=== PATIENT | female | born 1980 | race Caucasian/White ===

== ENCOUNTER 2017-03-28 01:27 | Emergency (ER) | payer BC ==
[2017-03-28 01:35] VITALS: BP 143/92
[2017-03-28] MEDS ORDERED: Ondansetron 4 MG/2 ML SDV IVPUSH ONE (01:45)
[2017-03-28] MEDS ORDERED: Sodium Chloride 0.9% 1,000 ML IV SCH (01:45)
[2017-03-28] MEDS ORDERED: Sodium Chloride 0.9% 10 ML Syringe FLUSH PRN (01:45)
[2017-03-28] MEDS ORDERED: HYDROmorphone 1 MG/ML Syringe IVPUSH ONE (01:47)
--- NOTE | 2017-03-28 01:51 | EDM.PDOC ---
ED HPI GENERAL MEDICAL PROBLEM - General Chief Complaint: Abdominal Pain Stated Complaint: VOMITING/ABDOMINAL PAIN Time Seen by Provider: 03/28/17 01:42 Source of Information: Reports: Patient History Limitations: Reports: No Limitations - History of Present Illness INITIAL COMMENTS - FREE TEXT/NARRATIVE: The patient presents with left flank pain, abdominal pain, nausea and vomiting. This all started about 10pm last night. She has chills but no fever. She has no dysuria or hematuria. She had 1 episode of diarrhea before she came. She has no history of kidney stones. She did not eat any bad food and she has not been around anyone who is sick. She still has her appendix and gallbladder. Onset: Sudden Duration: Hour(s): (3) Location: Reports: Abdomen, Back Quality: Reports: Sharp Severity: Severe Improves with: Reports: None Worsens with: Reports: None Associated Symptoms: Reports: Fever/Chills, Nausea/Vomiting. Denies: Chest Pain , Cough, Shortness of Breath Middle Abdominal Pain Score (Numeric/FACES): 8 - Related Data Allergies Allergy/AdvReac Type Severity Reaction Status Date / Time Penicillins Allergy Hives Verified 03/28/17 01:32 Home Meds: Home Meds Nitrofurantoin [place]/Macrocryst [Macrobid] 100 mg PO BID #10 cap 03/28/17 [Rx] Ondansetron [Zofran ODT] 4 mg PO Q6H PRN #20 tab.dis 03/28/17 [Rx] Past Medical History - Past Surgical History HEENT Surgical History: Reports: Tonsillectomy Female Surgical History: Reports: Section, Tubal Ligation Social & Family History - Tobacco Use Smoking Status *Q: Never Smoker - Recreational Drug Use Recreational Drug Use: No ED ROS GENERAL - Review of Systems Review Of Systems: See Below Constitutional: Reports: Chills. Denies: Fever HEENT: Reports: No Symptoms Respiratory: Reports: No Symptoms Cardiovascular: Reports: No Symptoms Endocrine: Reports: No Symptoms GI/Abdominal: Reports: Abdominal Pain, Diarrhea, Nausea, Vomiting : Reports: No Symptoms Musculoskeletal: Reports: Back Pain (Left flank) ED EXAM, GI/ABD - Physical Exam Exam: See Below Exam Limited By: No Limitations General Appearance: Alert, No Apparent Distress Ears: Normal External Exam Nose: Normal Inspection Head: Atraumatic, Normocephalic Neck: Normal Inspection Respiratory/Chest: No Respiratory Distress, Lungs Clear, Normal Breath Sounds Cardiovascular: Regular Rate, Rhythm, No Edema, No Murmur GI/Abdominal Exam: Soft, No Organomegaly, No Mass, Tender (Moderate pain to the left upper abdomen) Back Exam: CVA Tenderness (L) Course - Vital Signs Last Recorded V/S: Last Vital Signs Temp 98.1 F 03/28/17 01:33 Pulse 94 03/28/17 01:33 Resp 16 03/28/17 01:33 BP 143/92 H 03/28/17 01:33 Pulse Ox 98 03/28/17 01:33 - Orders/Labs/Meds Orders: Active Orders 24 hr Category Date Time Status Peripheral IV Care [RC] . DIRECTED Care 03/28/17 01:46 Active Abdomen Pelvis wo Cont [CT] Stat Exams 03/28/17 01:45 Taken Levofloxacin [Levaquin] Med 03/28/17 03:19 Once 500 mg PO ONETIME ONE Sodium Chloride 0.9% [Normal Saline] 1,000 ml Med 03/28/17 01:45 Active IV ASDIRECTED Sodium Chloride 0.9% [Saline Flush] Med 03/28/17 01:45 Active 10 ml FLUSH ASDIRECTED PRN ED Antiemetic Medication Reflex [OM.PC] Stat Oth 03/28/17 01:46 Ordered Peripheral IV Insertion Adult [OM.PC] Stat Oth 03/28/17 01:45 Ordered Medication Orders Sodium Chloride (Normal Saline) 1,000 mls @ 125 mls/hr IV ASDIRECTED LISA Last Admin: 03/28/17 01:54 Dose: 125 mls/hr Sodium Chloride (Saline Flush) 10 ml FLUSH ASDIRECTED PRN PRN Reason: Keep Vein Open Last Admin: 03/28/17 01:53 Dose: 10 ml Labs: Laboratory Tests 03/28/17 03/28/17 03/28/17 Range/Units 01:50 01:50 01:50 WBC 14.85 H (3.98-10.04) K/mm3 RBC 4.93 (3.98-5.22) M/mm3 Hgb 13.7 (11.2-15.7) gm/L Hct 40.5 (34.1-44.9) % MCV 82.2 (79.4-94.8) fl MCH 27.8 (25.6-32.2) pg MCHC 33.8 (32.2-35.5) g/dl RDW Std Deviation 39.9 (36.4-46.3) fL Plt Count 338 (182-369) K/mm3 MPV 9.8 (9.4-12.3) fl Neut % (Auto) 72.8 H (34.0-71.1) % Lymph % (Auto) 18.5 L (19.3-51.7) % [place] % (Auto) 8.1 (4.7-12.5) % Eos % (Auto) 0.1 L (0.7-5.8) Baso % (Auto) 0.3 (0.1-1.2) % Neut # (Auto) 10.81 H (1.56-6.13) K/mm3 Lymph # (Auto) 2.75 (1.18-3.74) K/mm3 [place] # (Auto) 1.21 H (0.24-0.36) K/mm3 Eos # (Auto) 0.01 L (0.04-0.36) K/mm3 Baso # (Auto) 0.04 (0.01-0.08) K/mm3 Sodium 141 (136-145) mEq/L Potassium 3.9 (3.5-5.1) mEq/L Chloride 105 (98-107) mEq/L Carbon Dioxide 28 (21-32) mEq/L Anion Gap 11.9 (5-15) BUN 15 (7-18) mg/dL Creatinine 0.9 (0.55-1.02) mg/dL Est Cr Clr Drug Dosing 75.34 mL/min Estimated GFR (MDRD) > 60 (>60) mL/min BUN/Creatinine Ratio 16.7 (14-18) Glucose 131 H (74-106) mg/dL Calcium 9.1 (8.5-10.1) mg/dL Total Bilirubin 0.3 (0.2-1.0) mg/dL AST 18 (15-37) U/L ALT 24 (14-59) U/L Alkaline Phosphatase 84 (46-116) U/L Total Protein 7.6 (6.4-8.2) g/dl Albumin 3.5 (3.4-5.0) g/dl Globulin 4.1 gm/dL Albumin/Globulin Ratio 0.9 L (1-2) Lipase 117 (73-393) U/L HCG, Qual Negative (NEGATIVE) Urine Color (Yellow) Urine Appearance (Clear) Urine pH (5.0-8.0) Ur Specific Kam[place] (1.005-1.030) Urine Protein (Negative) Urine Glucose (UA) (Negative) Urine Ketones (Negative) Urine Occult Blood (Negative) Urine Nitrite (Negative) Urine Bilirubin (Negative) Urine Urobilinogen (0.2-1.0) Ur Leukocyte Esterase (Negative) Urine RBC (0-5) /hpf Urine WBC (0-5) /hpf Ur Epithelial Cells (0-5) /hpf Urine Bacteria (FEW) /hpf Urine Mucus (FEW) /hpf 03/28/17 Range/Units 02:57 WBC (3.98-10.04) K/mm3 RBC (3.98-5.22) M/mm3 Hgb (11.2-15.7) gm/L Hct (34.1-44.9) % MCV (79.4-94.8) fl MCH (25.6-32.2) pg MCHC (32.2-35.5) g/dl RDW Std Deviation (36.4-46.3) fL Plt Count (182-369) K/mm3 MPV (9.4-12.3) fl Neut % (Auto) (34.0-71.1) % Lymph % (Auto) (19.3-51.7) % [place] % (Auto) (4.7-12.5) % Eos % (Auto) (0.7-5.8) Baso % (Auto) (0.1-1.2) % Neut # (Auto) (1.56-6.13) K/mm3 Lymph # (Auto) (1.18-3.74) K/mm3 [place] # (Auto) (0.24-0.36) K/mm3 Eos # (Auto) (0.04-0.36) K/mm3 Baso # (Auto) (0.01-0.08) K/mm3 Sodium (136-145) mEq/L Potassium (3.5-5.1) mEq/L Chloride (98-107) mEq/L Carbon Dioxide (21-32) mEq/L Anion Gap (5-15) BUN (7-18) mg/dL Creatinine (0.55-1.02) mg/dL Est Cr Clr Drug Dosing mL/min Estimated GFR (MDRD) (>60) mL/min BUN/Creatinine Ratio (14-18) Glucose (74-106) mg/dL Calcium (8.5-10.1) mg/dL Total Bilirubin (0.2-1.0) mg/dL AST (15-37) U/L ALT (14-59) U/L Alkaline Phosphatase (46-116) U/L Total Protein (6.4-8.2) g/dl Albumin (3.4-5.0) g/dl Globulin gm/dL Albumin/Globulin Ratio (1-2) Lipase (73-393) U/L HCG, Qual (NEGATIVE) Urine Color Red H (Yellow) Urine Appearance Cloudy H (Clear) Urine pH 5.5 (5.0-8.0) Ur Specific Kam[place] > or = 1.030 (1.005-1.030) Urine Protein 2+ H (Negative) Urine Glucose (UA) Negative (Negative) Urine Ketones Negative (Negative) Urine Occult Blood 3+ H (Negative) Urine Nitrite Positive H (Negative) Urine Bilirubin 1+ H (Negative) Urine Urobilinogen 1.0 (0.2-1.0) Ur Leukocyte Esterase Negative (Negative) Urine RBC >100 H (0-5) /hpf Urine WBC 5-10 H (0-5) /hpf Ur Epithelial Cells 0-5 (0-5) /hpf Urine Bacteria Few (FEW) /hpf Urine Mucus Not seen (FEW) /hpf Meds: Medications Generic Name Dose Route Start Last Admin Trade Name Freq PRN Reason Stop Dose Admin Sodium Chloride 1,000 mls @ 125 mls/hr 03/28/17 01:45 03/28/17 01:54 Normal Saline IV 125 mls/hr ASDIRECTED LISA Administration Sodium Chloride 10 ml 03/28/17 01:45 03/28/17 01:53 Saline Flush FLUSH 10 ml ASDIRECTED PRN Administration Keep Vein Open Discontinued Medications Generic Name Dose Route Start Last Admin Trade Name Freq PRN Reason Stop Dose Admin Hydromorphone HCl 1 mg 03/28/17 01:47 03/28/17 01:53 Dilaudid IVPUSH 03/28/17 01:48 1 mg ONETIME ONE Administration Ketorolac Tromethamine 30 mg 03/28/17 02:59 03/28/17 03:05 Toradol IVPUSH 03/28/17 03:00 30 mg ONETIME ONE Administration Ondansetron HCl 4 mg 03/28/17 01:45 03/28/17 01:53 Zofran IVPUSH 03/28/17 01:46 4 mg ONETIME ONE Administration - Re-Assessments/Exams Free Text/Narrative Re-Assessment/Exam: 03/28/17 01:51 I ordered an IV NS at 125mL/hr, zofran 4mg IV, dilaudid 1mg IV labs, UA and a CT of her abdomen and pelvis. 03/28/17 03:20 Her WBC was elevated at 14.85. Her CMP was negative. Her UA shows a UTI. Her CT shows nothing acute. She did have a stone in each kidney. I will give her a dose of levaquin here and a prescription for macrobid for 5 days and zofran. Departure - Departure Time of Disposition: 15:25 Disposition: Home, Self-Care 01 Condition: Good Clinical Impression: UTI (urinary tract infection) Qualifiers: Urinary tract infection type: acute cystitis Hematuria presence: with hematuria Qualified Code(s): N30.01 - Acute cystitis with hematuria Abdominal pain Qualifiers: Abdominal location: generalized Qualified Code(s): R10.84 - Generalized abdominal pain Vomiting Qualifiers: Vomiting type: unspecified Vomiting Intractability: non-intractable Nausea presence: with nausea Qualified Code(s): R11.2 - Nausea with vomiting, unspecified - Discharge Information Prescriptions: Nitrofurantoin [place]/Macrocryst [Macrobid] 100 mg PO BID #10 cap Ondansetron [Zofran ODT] 4 mg PO Q6H PRN #20 tab.dis PRN Reason: Nausea/Vomiting Referrals: Radha Rodgers SHOE REPAIRMAN [Primary Care Provider] - Forms: ED Department Discharge Additional Instructions: Drink plenty of fluid. Take the macrobid 2 times per day for 5 days. Take the zofran as needed for nausea and vomiting. Follow up with your doctor this week if you do not feel better. Please return if you are worse. - My Orders Last 24 Hours: My Active Orders 03/28/17 01:45 Abdomen Pelvis wo Cont [CT] Stat Sodium Chloride 0.9% [Normal Saline] 1,000 ml IV ASDIRECTED Sodium Chloride 0.9% [Saline Flush] 10 ml FLUSH ASDIRECTED PRN Peripheral IV Insertion Adult [OM.PC] Stat 03/28/17 01:46 Peripheral IV Care [RC] . DIRECTED ED Antiemetic Medication Reflex [OM.PC] Stat 03/28/17 03:19 Levofloxacin [Levaquin] 500 mg PO ONETIME ONE - Assessment/Plan Last 24 Hours: My Active Orders 03/28/17 01:45 Abdomen Pelvis wo Cont [CT] Stat Sodium Chloride 0.9% [Normal Saline] 1,000 ml IV ASDIRECTED Sodium Chloride 0.9% [Saline Flush] 10 ml FLUSH ASDIRECTED PRN Peripheral IV Insertion Adult [OM.PC] Stat 03/28/17 01:46 Peripheral IV Care [RC] . DIRECTED ED Antiemetic Medication Reflex [OM.PC] Stat 03/28/17 03:19 Levofloxacin [Levaquin] 500 mg PO ONETIME ONE
[2017-03-28] MEDS ORDERED: Ketorolac 30 MG/ML SDV IVPUSH ONE (02:59)
[2017-03-28] MEDS ORDERED: Levofloxacin 500 MG Tab PO ONE (03:19)
--- NOTE | 2017-03-28 07:40 | CT ---
CT abdomen and pelvis Technique: Multiple axial sections were obtained from above the dome of the diaphragm inferiorly through the pubic symphysis. Intravenous and oral contrast was not utilized. Study has been performed as a ureteral stone protocol. Comparison: No previous study. Findings: Very small nonobstructing renal calculi are noted within both kidneys. No ureteral dilatation or ureteral stone is seen. No bladder calculi are identified. Visualized lung bases show nothing acute. Liver shows mild fatty infiltration. No focal abnormality seen within the liver. Spleen appears within normal limits. Adrenal glands show no nodule. Pancreas is within normal limits. Gallbladder shows no calcified gallstones. Aorta shows no aneurysmal dilatation. No retroperitoneal adenopathy or mesenteric abnormalities are seen. No pelvic mass or adenopathy is seen. Appendix felt to be seen and appears to be normal. Bone window settings were reviewed appearing within normal limits for the patient's age. Impression: 1. Small nonobstructing calculi within both kidneys. No ureteral dilatation or ureteral stone is seen. 2. Fatty infiltration within the liver. 3. Other normal findings as described above. Diagnostic code #2 I agree with preliminary report issued by [employer] ([facility] preliminary report dictated on 03/28/17, 3:32 AM Central Time)
== END 2017-03-28 03:35 | disposition home or self-care (01) ==
LOC: JD.ED 01:27
DX: N30.01 Acute cystitis with hematuria (principal); Z98.890 Other specified postprocedural states; Z98.51 Tubal ligation status; Z88.0 Allergy status to penicillin
CPT/HCPCS: 36415; 74176; 80053; 81001; 83690; 84703; 85025; 96361; 96374; 96375; 99284; A9270; J1170; J1885; J2405; J7040; J7050

== ENCOUNTER 2022-02-07 15:37 | Emergency (ER) | payer OTHER ==
[2022-02-07 16:09] VITALS: BP 147/100; PULSE 104
[2022-02-07] MEDS ORDERED: HYDROmorphone 1 MG/ML Syringe IVPUSH STA (17:53)
[2022-02-07] MEDS ORDERED: Ondansetron 4 MG/2 ML SDV IVPUSH ONE (17:53)
[2022-02-07] MEDS ORDERED: Sodium Chloride 0.9% 1,000 ML IV SCH (18:00)
== END 2022-02-07 21:19 | disposition home or self-care (01) ==
LOC: SUPCPDRO 15:37 → JD.ED 15:37
DX: N13.2 Hydronephrosis with renal and ureteral calculous obstruction (principal); E78.00 Pure hypercholesterolemia, unspecified; Z88.0 Allergy status to penicillin; Z86.16 Personal history of COVID-19
CPT/HCPCS: 36415; 74176; 80053; 81001; 81025; 85025; 96361; 96374; 96375; 99284; J1170; J2405; J7030

== ENCOUNTER 2022-09-05 03:13 | Emergency (ER) | payer BC, OTHER ==
[2022-09-05 03:26] VITALS: BP 133/93; PULSE 103
[2022-09-05] MEDS ORDERED: Ondansetron 4 MG/2 ML SDV IVPUSH ONE (03:57)
[2022-09-05] MEDS ORDERED: HYDROmorphone 1 MG/ML Syringe IVPUSH STA (03:57)
[2022-09-05] MEDS ORDERED: Sodium Chloride 0.9% 1,000 ML IV SCH (04:00)
[2022-09-05] MEDS ORDERED: Sodium Chloride 0.9% 10 ML Syringe FLUSH ONE (04:27)
[2022-09-05] MEDS ORDERED: Iopamidol 612 MG/ML 100 ML Bottle IVPUSH ONE (04:27)
== END 2022-09-05 06:10 | disposition home or self-care (01) ==
LOC: JD.ED 03:13
DX: K57.32 Diverticulitis of large intestine without perforation or abscess without bleeding (principal); Z88.0 Allergy status to penicillin; Z86.16 Personal history of COVID-19
CPT/HCPCS: 36415; 74177; 76705; 80053; 81001; 81025; 83690; 83735; 85007; 85027; 96361; 96374; 96375; 99284; J1170; J2405; J3490; J7030; Q9967

== ENCOUNTER 2023-08-28 10:38 | Emergency (ER) | payer BC ==
[2023-08-28] MEDS ORDERED: Sodium Chloride 0.9% 10 ML Syringe FLUSH PRN (10:57)
[2023-08-28] MEDS ORDERED: Aspirin 81 MG Tab.Chew PO ONE (10:57)
[2023-08-28 11:47] LABS: BASOPHILS ABSOLUTE AUTO 0.1 K/mm3 (0.0-0.2); BASOPHILS PERCENT AUTO 0.8 % (0.0-1.0); EOSINOPHILS PERCENT AUTO 0.3 % (0.0-6.0); HEMATOCRIT 39.4 % (37.0-47.0); HEMOGLOBIN 13.1 gm/dl (12.0-16.0); IMMATURE GRAN ABSOLUTE AUTO 0.02 K/mm3 (0.00-0.05); IMMATURE GRAN PERCENT AUTO 0.3 % (0.0-0.4); LYMPHOCYTES ABSOLUTE AUTO 2.1 K/mm3 (1.0-4.8); LYMPHOCYTES PERCENT AUTO 28.7 % (24.0-44.0); MEAN CORPUSCULAR HEMOGLOBIN 27.3 pg (28.0-32.0); MEAN CORPUSCULAR HGB CONC 33.2 g/dl (32.0-36.0); MEAN CORPUSCULAR VOLUME 82.3 fl (83.0-99.0); MEAN PLATELET VOLUME 9.2 fl (9.4-12.3); MONOCYTES ABSOLUTE AUTO 0.7 K/mm3 (0.0-0.8); MONOCYTES PERCENT AUTO 9.8 % (0.0-8.0); NEUTROPHILS ABSOLUTE AUTO 4.4 K/mm3 (1.8-7.7); NEUTROPHILS PERCENT AUTO 60.1 % (41.0-71.0); PLATELET COUNT,PLT 310 K/mm3 (150-400); RED BLOOD CELL COUNT 4.79 M/mm3 (4.10-5.30); WHITE BLOOD CELL COUNT,WBC 7.24 K/mm3 (3.9-11.3)
[2023-08-28 12:14] LABS: A/G RATIO 0.9 (1-2); ALBUMIN 3.4 g/dl (3.4-5.0); ANION GAP 12.1 (5-15); BILIRUBIN TOTAL 0.3 mg/dL (0.2-1.0); BUN/CREATININE RATIO 17.5 (14-18); CALCIUM 8.6 mg/dL (8.5-10.1); CREATININE 0.8 mg/dL (0.55-1.02); EST CRCL DRUG DOSING (CG) 79.91 mL/min; MAGNESIUM 2.1 mg/dL (1.8-2.4); POTASSIUM,K 4.1 mEq/L (3.5-5.1)
[2023-08-28 12:27] LABS: PROTHROMBIN TIME 9.9 SECONDS (9.7-12.0)
[2023-08-28 12:29] LABS: INR < 0.93
[2023-08-28 13:52] VITALS: BP 121/78; PULSE 80
== END 2023-08-28 13:51 | disposition home or self-care (01) ==
LOC: JD.ED 10:38
DX: I44.7 Left bundle-branch block, unspecified (principal); R07.89 Other chest pain; Z86.16 Personal history of COVID-19; Z88.0 Allergy status to penicillin; Z88.1 Allergy status to other antibiotic agents
CPT/HCPCS: 36415; 71045; 71045-26; 80053; 83735; 84484; 84702; 85025; 85610; 93005; 93010; 99284; 99285